=== PATIENT | male | born 1995 | race African-American/Black ===

== ENCOUNTER 2017-04-11 12:49 | Emergency (ER) | payer MEDICAID ==
[~2017-04-11] VITALS: Ht 190.5 cm; Wt 136.1 kg
[2017-04-11 15:44] VITALS: BP 122/72
[2017-04-11] MEDS ORDERED: traMADol HCL 50 MG TAB PO ONE (16:45)
== END 2017-04-11 16:50 | disposition home or self-care (01) ==
LOC: ER 12:52
DX: S02.2XXA Fracture of nasal bones, initial encounter for closed fracture (principal); S00.83XA Contusion of other part of head, initial encounter; Y08.89XA Assault by other specified means, initial encounter; Y93.89 Activity, other specified; Y99.8 Other external cause status; Y92.89 Other specified places as the place of occurrence of the external cause
CPT/HCPCS: 70450; 70486; 72125